=== PATIENT | male | born 1975 | race Caucasian/White ===

== ENCOUNTER → 2016-09-29 | Outpatient (CLI) | payer OTHER ==
--- NOTE | ~2016-09-29 | MR112 ---
[facility] A Service of [facility] RADIOLOGY TEXT RESULTS PATIENT: GI LUKE LOCATION: [facility] : [birth year] UNIT #: [id number] AGE: [address]: Jerald Mejia MD SEX: M ORDER DR: [id number] [address] [address] [id number] MR#: [id number] Acc #: [id number] NAME: GI LUKE : 1975 SEX: M STUDY DATE/TIME: 09/29/2016 10:27 UNIT: [facility] ROOM: STUDY DESCRIPTION: MR Lumbar WWo Contrast Attending Physician: Jerald Noriega M.D. Referring Physician: Jerald Noriega M.D. Ordering Physician: Jerald Noriega M.D. Primary Care Physician: Mary Simpson M.D. MRI CENTER REPORT This report is preliminary unless electronic signature is present. EXAM MRI of the lumbar spine with and without contrast dated 09/29/2016. COMPARISON MRI lumbar spine without contrast dated 01/12/2016. HISTORY Recurrent, increasing low back pain with left lower extremity radiation. It started about a month after surgery. Surgery was on May 04, 2016. TECHNIQUE Multisequence, multiplanar imaging of the lumbar spine was obtained with and without contrast. 20 mL of MultiHance was administered intravenously. FINDINGS Vertebral body heights and alignment are preserved. Degenerative disc signal loss is at L5-S1 and, to a lesser degree, at L4-5. Mild edematous endplate changes are noted along the right lateral aspect of L5-S1. Conus terminates at T12-L1. There is vertically linear enhancement extending from the visualized L1 level all the way down to the last L5-S1 level along the left lateral aspect of the thecal sac. It could represent an enhancing nerve root, such as a left S1 nerve, or a vessel. Postoperative changes are noted at the L5-S1 level with left hemilaminectomy. No drainable large fluid postoperative collection is seen. Retroperitoneum is unremarkable. L5-S1: Status post left hemilaminectomy with enhancing granulation tissue in the left paraspinal muscles. No drainable abscess. There is nonenhancing soft tissue extending from the center to the left subarticular to foraminal region of the disc. It measures at least 1.8 x 1.2 x 2.1 cm. There was a large disc extrusion previously noted at this level. Currently nonenhancing soft tissues again seen. Severe mass effect is noted on the thecal sac. There is also a disc bulge that is STS. [facility] A Service of [facility] RADIOLOGY TEXT RESULTS PATIENT: GI LUKE LOCATION: [facility] : 71 UNIT #: [id number] AGE: [address]: Jerald Mejia MD SEX: M ORDER DR: asymmetrically prominent in the left foraminal to extraforaminal region with some enhancement contributing to Moderate left neural foraminal narrowing. There is severe left lateral recess stenosis. L4-5: Concentric disc bulge with superimposed left foraminal to extraforaminal moderate protrusion with annular fissure. There are mild bilateral facet hypertrophic changes with nonenhancing 9 x 6 mm hyperintense T2 signal within the left ligamentum flavum, likely a subligamentous synovial cyst with some inflammation. Mild to moderate right ligamentum flavum thickening is also noted with a tiny right subligamentous cyst/inflammatory tissue. These contribute to severe mass effect on the thecal sac and displacement of it towards the right side of the bony canal. There is mild to moderate right and moderate to severe left lateral recess stenosis with mild bilateral neural foraminal narrowing, worse on the left. Though the protrusion is old, the left subligamentous lesion is new since last year. L3-4: Concentric disc bulge with mild left facet hypertrophic change, mild canal stenosis and mild inferior bilateral neural foraminal narrowing. L2-3: Concentric disc bulge with mild bilateral facet change. No significant canal stenosis or neural foraminal narrowing. Borderline-sized canal is suspected. L1-2: Unremarkable. IMPRESSION 1. Status post left hemilaminectomy is noted at L5-S1. The postoperative enhancing granulation tissue is noted in the left paraspinal region, extending to the left laminectomy bed. There is a large nonenhancing soft tissue component extending from the central to the left foraminal region of the disc with the largest component in the left subarticular region. It measures 1.2 x 1.8 x 2.1 cm. Correlate for possible with residual disc extrusion along with postoperative change in this region. Severe mass effect is noted on the thecal sac. There is also left neural foraminal narrowing. 2. At L4-5, there is an interval new peripherally enhancing 9 x 6 mm left subligamentous cyst, probably a synovial cyst. It, along with the other previously noted disc disease and right ligamentum flavum thickening, causes severe canal stenosis and mass effect on the thecal sac. 3. There is vertically linear enhancement extending from the visualized L1 level all the way down to the last L5-S1 level along the left lateral aspect of the thecal sac. It could represent an enhancing nerve root, such as a left S1 nerve, or a vessel. Clinically exclude neuritis. As the prior study was obtained without contrast, it could not be compared. [facility] A Service of [facility] RADIOLOGY TEXT RESULTS PATIENT: GI LUKE LOCATION: [facility] : 71 UNIT #: [id number] AGE: [address]: Jerald Mejia MD SEX: M ORDER DR: Dictated by... Bhavesh Milton M.D. THIS IS AN ELECTRONICALLY VERIFIED REPORT Bhavesh Milton M.D. at 10/03/2016 10:16 PM CPR/zully TD: 09/29/2016 13:04 JOB #: [id number] MRI CENTER REPORT Page 1 of 1
== END | disposition home or self-care (01) ==
LOC: SMRI 09:24
DX: Z47.89 Encounter for other orthopedic aftercare (principal); M79.605 Pain in left leg; M99.83 Other biomechanical lesions of lumbar region; M48.06 Spinal stenosis, lumbar region; Z98.1 Arthrodesis status; Z98.890 Other specified postprocedural states
CPT/HCPCS: 72158; A9581